=== PATIENT | male | born 1965 | race Caucasian/White ===

== ENCOUNTER 2016-04-05 09:20 | Emergency (ER) | payer OTHER ==
[~2016-04-05] VITALS: Ht 188 cm; Wt 99.0 kg
[2016-04-05] MEDS ORDERED: KEFLEX500 MG PO (10:14)
[2016-04-05 10:38] VITALS: BP 111/75
== END 2016-04-05 10:39 | disposition home or self-care (01) ==
LOC: EME 09:20
PROC: 0HQGXZZ Repair Left Hand Skin, External Approach (ICD-10-PCS; principal; 2016-04-05)
DX: S61.412A Laceration without foreign body of left hand, initial encounter (principal); W45.0XXA Nail entering through skin, initial encounter; Y99.0 Civilian activity done for income or pay
CPT/HCPCS: 99281; 99283

== ENCOUNTER → 2016-04-14 | Outpatient (CLI) | payer OTHER ==
[~2016-04-14] MED LIST: KEFLEX500 MG PO
== END | disposition home or self-care (01) ==
LOC: RAD 10:59
DX: S61.412A Laceration without foreign body of left hand, initial encounter (principal)
CPT/HCPCS: 73130

== ENCOUNTER → 2017-02-16 | Outpatient (CLI) | payer OTHER | END | disposition home or self-care (01) | LOC: CDC 12:10 | DX: Z01.810 Encounter for preprocedural cardiovascular examination (principal); K40.90 Unilateral inguinal hernia, without obstruction or gangrene, not specified as recurrent | CPT/HCPCS: 93000 ==